=== PATIENT | male | born 1995 | race Caucasian/White ===

== ENCOUNTER 2019-05-28 12:43 | Emergency (ER) | payer OTHER ==
[2019-05-28 13:35] VITALS: BP 116/64
[2019-05-28 13:50] LABS: Influenza A Molecular POSITIVE (Negative)
--- NOTE | 2019-05-28 13:52 | UC ---
FLU HPI - HPI Summary HPI Summary: 23-year-old college male who has had flulike illness since yesterday. He has been vomiting however the last time he vomited was 9 PM last evening and he's been able to keep food and liquids down today. - History of Current Complaint Chief Complaint: UCRespiratory Stated Complaint: BODY ACHES, CONGESTION, LOSS OF JUAN ANTONIO Time Seen by Provider: 05/28/19 13:50 Hx Obtained From: Patient Onset/Duration: Sudden Onset Severity Currently: Mild Severity Initially: Moderate Pain Intensity: 5 Associated Signs & Symptoms: Positive: Fever, Myalgia, Nasal Congestion, Headache, Vomiting Related Hx: Possible Flu/Infectious Exposure - Allergy/Home Medications Allergies/Adverse Reactions: Allergies Allergy/AdvReac Type Severity Reaction Status Date / Time No Known Allergies Allergy Verified 05/28/19 13:35 Home Medications: Home Medications Ibuprofen TAB* [Motrin TAB* 400 MG] 400 mg PO Q6H PRN 05/28/19 [History Confirmed 05/28/19] PMH/Surg Hx/FS Hx/Imm Hx Previously Healthy: Yes - Surgical History Surgical History: None - Family History Known Family History: Positive: Non-Contributory - Social History Occupation: Student Lives: Dormitory/Roommates Alcohol Use: Occasionally Substance Use Type: None Smoking Status (MU): Never Smoked Tobacco Review of Systems All Other Systems Reviewed And Are Negative: Yes Constitutional: Positive: Fever, Chills ENT: Positive: Nasal Discharge Musculoskeletal: Positive: Myalgia Neurological/Mental Status: Positive: Headache Is Patient Immunocompromised?: No Physical Exam Triage Information Reviewed: Yes Appearance: Well-Appearing, No Pain Distress, Well-Nourished Vital Signs: Initial Vital Signs Temp 97.5 F 05/28/19 13:28 Pulse 84 05/28/19 13:28 Resp 18 05/28/19 13:28 BP 116/64 05/28/19 13:28 Pulse Ox 96 05/28/19 13:28 Vital Signs Reviewed: Yes Eyes: Positive: Conjunctiva Clear ENT: Positive: Pharyngeal erythema - Minimal pharyngeal erythema, Nasal congestion, Nasal drainage - Clear nasal coryza, TMs normal, Uvula midline Neck: Positive: Supple, Nontender, No Lymphadenopathy Respiratory: Positive: Lungs clear, Normal breath sounds, No respiratory distress, No accessory muscle use Cardiovascular: Positive: RRR, No Murmur, Pulses Normal, Brisk Capillary Refill Musculoskeletal Exam: Normal Neurological Exam: Normal Psychological Exam: Normal Skin Exam: Normal Flu Course/Dx - Course Course Of Treatment: Rapid flu test: Positive for influenza A Patient is comfortable here and in no distress. He is actually feeling better today than he has been. - Differential Dx/Diagnosis Provider Diagnosis: Influenza A Discharge ED - Sign-Out/Discharge Documenting (check all that apply): Patient Departure All imaging exams completed and their final reports reviewed: No Studies - Discharge Plan Condition: Good Disposition: HOME Patient Education Materials: Influenza (DC) Forms: *School Release Referrals: No Primary Care Phys,NOPCP [Primary Care Provider] - JESUS ROOT [[email or web address], [employer], OTHER] - Additional Instructions: Increase fluids, may take Tylenol every 4 hours and ibuprofen every 8 hours for fever or pain. Follow-up at the [facility] if no improvement in 3 or 4 days. - Billing Disposition and Condition Condition: GOOD Disposition: Home
== END 2019-05-28 14:03 | disposition home or self-care (01) ==
LOC: UCCORT 12:43
DX: J10.1 Influenza due to other identified influenza virus with other respiratory manifestations (principal)
CPT/HCPCS: 99201; G0463